=== PATIENT | female | born 1985 | race Caucasian/White ===

== ENCOUNTER 2016-12-02 09:08 | Emergency (ER) | payer MEDICAID ==
[~2016-12-02] VITALS: Ht 157.5 cm; Wt 80.0 kg
[~2016-12-02 09:08] MED LIST: FER325 PO; IBUP800T25 PO; OXYC-281 PO; PRENAT PO
[2016-12-02 09:11] VITALS: Ht 157.5 cm; Wt 80.0 kg
[2016-12-02] MEDS ORDERED: morphine 4 MG/ML VIAL IV STA (10:09)
[2016-12-02] MEDS ORDERED: ONDANSETRON 4 MG INJ IV STA (10:09)
[2016-12-02] MEDS ORDERED: SOD CHLORIDE 0.9% 1,000 ML IV STA (10:09)
[2016-12-02 10:34] LABS: ADD UMIC NO; UR ASCORBIC ACID NEGATIVE (NEGATIVE); UR BILIRUBIN (Dip) NEGATIVE (NEGATIVE); UR BLOOD (Dip) NEGATIVE (NEGATIVE); UR CLARITY CLEAR (CLEAR); UR COLOR STRAW (YELLOW); UR GLUCOSE (Dip) NEGATIVE (NEGATIVE); UR KETONES (Dip) NEGATIVE (NEGATIVE); UR LEUKOCYTE ESTERASE (Dip) NEGATIVE Leu/ul (NEGATIVE); UR NITRITE (Dip) NEGATIVE (NEGATIVE); UR SPECIFIC GRAVITY (Dip) 1.013 (1.003-1.030); UR TOTAL PROTEIN (Dip) NEGATIVE (NEGATIVE); UR UROBILINOGEN (Dip) NEGATIVE (NEGATIVE)
[2016-12-02 10:44] LABS: BASOPHIL # 0.1 10^3/ul (0.0-0.1); BASOPHILS % 0.9 % (0.0-2.0); EOSINOPHILS # 0.1 10^3/ul (0.0-0.5); EOSINOPHILS % 1.4 % (0.0-7.0); HEMATOCRIT 39.4 % (37.0-47.0); HEMOGLOBIN 12.7 g/dl (12.0-16.0); LYMPHOCYTES # 3.1 10^3/ul (0.8-2.9); LYMPHOCYTES % 53.2 % (15.0-51.0); MEAN CORPUSCULAR HEMOGLOBIN 27.3 pg (29.0-33.0); MEAN CORPUSCULAR HGB CONC 32.2 g/dl (32.0-37.0); MEAN CORPUSCULAR VOLUME 84.5 fl (82.0-101.0); MEAN PLATELET VOLUME 9.6 fl (7.4-10.4); MONOCYTE # 0.5 10^3/ul (0.3-0.9); MONOCYTES % 7.9 % (0.0-11.0); NEUTROPHILS % 36.4 % (39.0-77.0); PLATELET COUNT 397 10^3/UL (140-415); RED BLOOD COUNT 4.66 10^6/ul (4.20-5.40); RED CELL DISTRIBUTION WIDTH 13.4 % (11.5-14.5); WHITE BLOOD COUNT 5.7 10^3/ul (4.8-10.8)
[2016-12-02 11:02] LABS: ALBUMIN 4.3 g/dl (3.3-4.9); ALBUMIN/GLOBULIN RATIO 1.3; BILIRUBIN,INDIRECT 0.4 mg/dl (0-1.1); BILIRUBIN,TOTAL 0.4 mg/dl (0.2-1.3); CALCIUM 8.9 mg/dl (8.4-10.2); CREATININE 0.54 mg/dl (0.44-1.00); TOTAL PROTEIN 7.6 g/dl (6.1-8.1)
--- NOTE | 2016-12-02 12:00 | RADRPT ---
PROCEDURE: US Abdomen (right upper quadrant). CLINICAL INDICATION: Right upper quadrant abdomen pain. TECHNIQUE: Multiple real-time longitudinal and transverse images of the right upper quadrant of th e abdomen were acquired utilizing a curved array transducer. Images were reviewed on a high-resoluti on PACS workstation. COMPARISON: CT scan of the abdomen and pelvis dated 11/15/2015 which demonstrated mild right hydro nephrosis. FINDINGS: The liver is normal in size and normal in echogenicity. There is no focal hepatic lesion. Color Doppler and pulsed Doppler sonography demonstrate normal a ntegrade flow in the portal vein. The gallbladder is normal with no stones or wall thickening. There is no pericholecystic fluid donaldo ection. The bile ducts are normal with the common bile duct measuring 3.9 mm in diameter. The visualized portions of the pancreas are unremarkable with obscuration of the tail of the pancrea s. No free fluid is present. The right kidney measures 10.9 cm. There is normal echogenicity of the right kidney. There is mil d right hydronephrosis as seen on prior CT scan. No obstructing lesion is visualized. There is no right renal mass or calculus demonstrated. IMPRESSION: 1. Mild right hydronephrosis as seen on prior CT scan. No obstructing lesion visualized. 2. Otherwise normal right upper quadrant abdomen ultrasound. RPTAT: QQ .Klaus Meeks MD, Date Time Electronically viewed and signed by .Klaus Meeks MD, on 12/02/2016 11:59 .R/
[2016-12-02] MEDS ORDERED: IOHEXOL 300MG/ML 150 ML BTL ONE (13:15)
[2016-12-02] MEDS ORDERED: SOD CHLORIDE 0.9% 100 ML ONE (13:15)
--- NOTE | 2016-12-02 13:45 | RADRPT ---
PROCEDURE: CT Abdomen and pelvis with contrast. CLINICAL INDICATION: Right sided abdominal pain TECHNIQUE: CT scan of the abdomen and pelvis with contrast was performed on a multidetector high-r esolution CT scan. The patient was scanned following the uncomplicated intravenous administration o f 100 cc Omnipaque 300. Coronal and sagittal reformatted images were obtained from the axial source images. Standard CT of the abdomen pelvis with contrast protocols were performed. The total exam CTDI equals 15.35 mGy and the total exam DLP equals 901.98 mGy-cm. One or more of the following dose reduction techniques were used: - Automated exposure control. - Adjustment of the mA and/or kV according to patient size. Use of iterative reconstruction technique. COMPARISON: CT pelvis 11/16/2015 FINDINGS: The appendix is unremarkable. The stomach, small bowel and large bowel are unremarkable. There is trace free fluid in the cul-de-sac. Negative for other free fluid. No intra-abdominal abs cess, free air or lymphadenopathy. The uterus is retroverted and retroflexed but otherwise unremarkable. No adnexal masses. The kidneys are normal in size without calcified renal calculi, hydronephrosis or intra renal masses bilaterally. The ureters and urinary bladder are unremarkable. The liver spleen pancreas adrenal glands and gallbladder are unremarkable. No evidence of biliary d uctal dilation. The lung bases are unremarkable. The aorta is unremarkable the osseous structures are unremarkable. Previous lower abdominal wall abscess no longer seen. Minimal scarring involving the lower anterior midline abdominal wall. The abdominal pelvic unger are otherwise unremarkable. IMPRESSION: 1. Unremarkable appendix. No gastrointestinal disease demonstrated. 2. Trace free fluid in the cul-de-sac. No other abdominal free fluid, free air, abscesses or lymph adenopathy. 3. No evidence of calcified urinary calculi or obstructive uropathy. 4. Midline lower abdominal wall scarring without other abnormality demonstrated. RPTAT:AAJJ Physician Tacho Date Time Electronically viewed and signed by Physician Tacho on 12/02/2016 13:44 /
--- NOTE | 2016-12-02 14:03 | ERA ---
ER Documentation Chief Complaint Date/Time DATE: 12/02/16 TIME: 13:53 Chief Complaint ap 8-10 days HPI 31-year-old female with a chief complaints of abdominal pain and distention worsening over the past week. Patient states she is able to tolerate p.o. Denies nausea, vomiting, diarrhea, constipation, fever, chills, similar symptoms in the past. Denies drug use, IVDU, or alleviating factors. Patient has no other complaints and describes no other associated manifestations. Nursing notes have been reviewed and are consistent with history given. ROS All systems reviewed and are negative except as per history of present illness. Medications Home Meds Active Scripts Ibuprofen* (Ibuprofen*) 800 Mg Tablet, 800 MG PO Q8, #20 TAB 0 Refills Prov:RENEE PEDRAZA MD 11/11/15 Reported Medications Ferrous Sulfate* (Ferrous Sulfate*) 325 Mg Tabec, 325 MG PO DAILY, TAB 11/15/15 Oxycodone Hcl-Acetaminophen* (Percocet*) 5-325 Mg Tablet, 2 TAB PO Q4H Y for PAIN LEVEL 6-10, TAB 11/15/15 Multivit/Min/Fol Ac/Iron/Pren* ( S*) 1 Tab Tab, 1 TAB PO DAILY, TAB 09/04/15 Allergies Allergies: Coded Allergies: No Known Drug Allergies (Verified Allergy, Unknown, 11/15/15) PMhx/Soc History of Surgery: Yes (C SECTION) Anesthesia Reaction: No Hx Neurological Disorder: No Hx Respiratory Disorders: No Hx Cardiac Disorders: No Hx Psychiatric Problems: No Hx Miscellaneous Medical Probl: No Hx Alcohol Use: No Hx Substance Use: No Hx Tobacco Use: No Physical Exam Vitals Vital Signs Date Time Temp Pulse Resp B/P Pulse Ox O2 Delivery O2 Flow Rate FiO2 12/02/16 09:11 98.1 76 18 135/86 99 Physical Exam Const: 31-year-old female lying in the rney on initial presentation. No acute distress. Blast Furnace Checker was Innofidei Head: Atraumatic Eyes: Normal Conjunctiva ENT: Normal External Ears, Nose and Mouth. Neck: Full range of motion..~ No meningismus. Resp: Clear to auscultation bilaterally Cardio: Regular rate and rhythm, no murmurs Abd: Diffuse tenderness. Distended. No guarding. Positive psoas sign. Positive obturator sign. Negative Rovsing sign. Soft. Normal bowel sounds. Skin: No petechiae or rashes. No jaundice. Back: No midline or flank tenderness Ext: No cyanosis, or edema Neur: Awake and alert Psych: Normal Mood and Affect Result Diagram: 12/02/16 1023 12/02/16 1023 Results 24 hrs Laboratory Tests Test 12/02/16 10:00 12/02/16 10:23 Urine Color STRAW Urine Clarity CLEAR Urine pH 7.0 Urine Specific [place] 1.013 Urine Ketones NEGATIVEmg/dL Urine Nitrite NEGATIVEmg/dL Urine Bilirubin NEGATIVEmg/dL Urine Urobilinogen NEGATIVEmg/dL Urine Leukocyte Esterase NEGATIVELeu/ul Urine Hemoglobin NEGATIVEmg/dL Urine Glucose NEGATIVEmg/dL Urine Total Protein NEGATIVEmg/dl White Blood Count 5.710^3/ul Red Blood Count 4.6610^6/ul Hemoglobin 12.7g/dl Hematocrit 39.4% Mean Corpuscular Volume 84.5fl Mean Corpuscular Hemoglobin 27.3pg Mean Corpuscular Hemoglobin Concent 32.2g/dl Red Cell Distribution Width 13.4% Platelet Count 64019^3/UL Mean Platelet Volume 9.6fl Neutrophils % 36.4% Lymphocytes % 53.2% Monocytes % 7.9% Eosinophils % 1.4% Basophils % 0.9% Nucleated Red Blood Cells % 0.0/100WBC Neutrophils # (Manual) 210^3/ul Lymphocytes # 3.110^3/ul Monocytes # 0.510^3/ul Eosinophils # 0.110^3/ul Basophils # 0.110^3/ul Nucleated Red Blood Cells # 0.010^3/ul Sodium Level 143mmol/L Potassium Level 4.0mmol/L Chloride Level 100mmol/L Carbon Dioxide Level 27mmol/L Anion Gap 20 Blood Urea Nitrogen 14mg/dl Creatinine 0.54mg/dl Glucose Level 91mg/dl Calcium Level 8.9mg/dl Total Bilirubin 0.4mg/dl Direct Bilirubin 0.00mg/dl Indirect Bilirubin 0.4mg/dl Aspartate Amino Transf (AST/SGOT) 22IU/L Alanine Aminotransferase (ALT/SGPT) 34IU/L Alkaline Phosphatase 84IU/L Total Protein 7.6g/dl Albumin 4.3g/dl Globulin 3.30g/dl Albumin/Globulin Ratio 1.30 Lipase 59U/L Current Medications Medications (Trade) Dose Ordered Sig/Aravind Route PRN Reason Start Time Stop Time Status Last Admin Dose Admin Sodium Chloride (NS) 1,000 ml @ 1,000 mls/hr Q1H STAT IV 12/02/16 10:09 12/02/16 11:08 DC 12/02/16 10:25 Morphine Sulfate (morphine) 4 mg ONCE STAT IV 12/02/16 10:09 12/02/16 10:12 DC 12/02/16 10:25 Ondansetron HCl (Zofran Inj) 4 mg ONCE STAT IV 12/02/16 10:09 12/02/16 10:12 DC 12/02/16 10:25 IV Flush 10 ml 10 ml STK-MED ONCE .ROUTE 12/02/16 13:15 12/02/16 13:16 DC Sodium Chloride (NS) 100 ml @ ud STK-MED ONCE .ROUTE 12/02/16 13:15 12/02/16 13:16 DC Iohexol (Omnipaque 300mg/ ml) 150 ml STK-MED ONCE .ROUTE 12/02/16 13:15 12/02/16 13:16 DC Procedures/MDM Patient presenting with abdominal pain and distention worsening over the past week as described in history and physical examination. Physical examination was remarkable for tenderness diffusely. Labs and CT were ordered as well as ultrasound. Labs were largely unremarkable. Ultrasound was read by the radiologist given the impression of unremarkable. CT was read by the radiologist and was largely unremarkable for acute pathology. At this time of little suspicion for appendicitis, AAA, PID, pyelonephritis, cholangitis, diverticulitis, or other causes of acute abdomen. Most likely diagnosis is generalized abdominal pain due to unknown etiology. I spoke with my attending who agrees with the assessment and plan. I have spoke with the patient regarding their condition and future management. They have verbally responded that they understand their status and treatment plan. The patients vitals are stable, and their current condition is appropriate for discharge. The patient will be given discharge instructions with return precautions. Departure Diagnosis: Primary Impression: Abdominal pain Qualified Code: R10.84 - Generalized abdominal pain Condition: Stable Additional Instructions: Return to emergency department and 12 hours for reevaluation. Follow up with your PCP within the next 1-3 days for a more thorough evaluation and a possible referral to a specialist. Return the the emergency department immediately if symptoms worsen or change. If you have any questions regarding medications, ask your pharmacist or us before you leave. If any adverse reactions occur while taking your medications, discontinue the treatment and return to the emergency department immediately. Take your medications as directed, and complete the entire course of treatment. PERLA UHFF PA-C Dec 02, 2016 14:03
[2016-12-02] MEDS ORDERED: ACET-514 PO (14:06)
[2016-12-02] MEDS ORDERED: ONDA4TAB14 PO (14:06)
[2016-12-02 14:19] VITALS: BP 127/69; PULSE 61; RESP 18
== END 2016-12-02 14:22 | disposition home or self-care (01) ==
LOC: FTE 09:08
DX: R10.84 Generalized abdominal pain (principal)
CPT/HCPCS: 36415; 74177; 76705; 80053; 81003; 83690; 85025; 96374; 96375; J2270; J2405; J7030; Q9967; Z7502; Z7610

== ENCOUNTER 2017-12-01 21:46 | Emergency (ER) | END 2017-12-02 01:58 | disposition home or self-care (01) ==

== ENCOUNTER → 2018-07-27 | Outpatient (CLI) | payer MEDICAID ==
[~2018-07-27] MED LIST changes: +ACET-514 PO; +HC30CR25 TOP; +IBUP-1544 PO; -IBUP800T25 PO; +LORA10CA PO; +ONDA4TAB14 PO
== END | disposition home or self-care (01) ==
LOC: U/S 10:50
PROVIDERS: ATTEND Obstetrics & Gynecology
DX: Z32.01 Encounter for pregnancy test, result positive (principal)
CPT/HCPCS: 76801; 76817

== ENCOUNTER 2018-08-16 08:26 | Emergency (ER) | payer MEDICAID ==
[~2018-08-16] VITALS: Ht 165.1 cm; Wt 70.0 kg
[2018-08-16 08:27] VITALS: BP 144/56; PULSE 61; RESP 18; Ht 165.1 cm; Wt 70.0 kg
[2018-08-16] MEDS ORDERED: ACET325T33 PO (11:33)
--- NOTE | 2018-08-16 12:22 | ERD ---
ER Documentation Chief Complaint Chief Complaint pelvic pain 2 months also has foul smelling urine per pt HPI 33-year-old female presenting with pelvic pain x1 day. Patient had noted some mild foul-smelling urine. She is 6 weeks . LNMP June 14. G3, . Denies fevers. Has not taken medications for symptoms. Denies medical problems. NKDA. Surgical history . Social history denies ROS All systems reviewed and are negative except as per history of present illness. Medications Home Meds Active Scripts Acetaminophen* (Tylenol*) 325 Mg Tablet, 2 TAB PO Q6 PRN for PAIN AND OR ELEVATED TEMP, #20 TAB Prov:RACHELLE LEDESMA PA-C 08/16/18 Hydrocortisone* Topical (Hydrocortisone* Topical) 2.5%-28.3 Gm Cream..g., 1 APPLIC TOP BID, #1 TUB Prov:LEONCIO SALAZAR PA-C 12/02/17 Loratadine* (Claritin*) 10 Mg Capsule, 10 MG PO DAILY, #30 CAP Prov:LEONCIO SALAZAR PA-C 12/02/17 Acetaminophen (Acetaminophen) 325 Mg Tablet, 325 MG PO Q4 for 14 Days, TAB Prov:PERLA HUFF PA-C 12/02/16 Ondansetron (Ondansetron Odt) 4 Mg Tab.rapdis, 4 MG PO Q6H PRN for NAUSEA AND/OR VOMITING, #10 TAB Prov:PERLA HUFF PA-C 12/02/16 Ibuprofen* (Ibuprofen*) 800 Mg Tablet, 800 MG PO Q8, #20 TAB 0 Refills Prov:RENEE PEDRAZA MD 11/11/15 Reported Medications Ferrous Sulfate* (Ferrous Sulfate*) 325 Mg Tabec, 325 MG PO DAILY, TAB 11/15/15 Oxycodone Hcl-Acetaminophen* (Percocet*) 5-325 Mg Tablet, 2 TAB PO Q4H PRN for PAIN LEVEL 6-10, TAB 11/15/15 Multivit/Min/Fol Ac/Iron/Pren* ( S*) 1 Tab Tab, 1 TAB PO DAILY, TAB 09/04/15 Allergies Allergies: Coded Allergies: No Known Drug Allergies (Verified Allergy, Unknown, 12/02/17) PMhx/Soc History of Surgery: Yes (C SECTION) Anesthesia Reaction: No Hx Neurological Disorder: No Hx Respiratory Disorders: No Hx Cardiac Disorders: No Hx Psychiatric Problems: No Hx Miscellaneous Medical Probl: No Hx Alcohol Use: No Hx Substance Use: No Hx Tobacco Use: No FmHx Family History: No diabetes, No coronary disease, No other Physical Exam Vitals Vital Signs Date Temp Pulse Resp B/P (MAP) Pulse Ox O2 O2 Flow FiO2 Time Delivery Rate 08/16/18 97.7 61 18 144/56 98 08:27 (85) Physical Exam GENERAL: The patient is well-appearing, well-nourished, in no acute distress CHEST: Clear to auscultation bilaterally. There are no rales, wheezes or rhon chi. HEART: Regular rate and rhythm. No murmurs, clicks, rubs or gallops. No S3 or S4. ABDOMEN:Soft, nontender and nondistended. Good bowel sounds. No rebound or guarding. No gross peritonitis. No gross organomegaly or masses. BACK: No midline or flank tenderness. Result Diagram: 08/16/18 0953 Results 24 hrs Laboratory Tests Test 08/16/18 09:07 08/16/18 09:10 08/16/18 09:53 Urine Color YELLOW Urine Clarity SLIGHTLY CLOUDY Urine pH 8.0 Urine Specific [place] 1.021 Urine Ketones NEGATIVE mg/dL Urine Nitrite NEGATIVE mg/dL Urine Bilirubin NEGATIVE mg/dL Urine Urobilinogen NEGATIVE mg/dL Urine Leukocyte Esterase NEGATIVE [place]/ul Urine Microscopic RBC 2 /HPF Urine Microscopic WBC 3 /HPF Urine Squamous Epithelial Cells FEW /HPF Urine Mucus FEW /HPF Urine Hemoglobin NEGATIVE mg/dL Urine Glucose NEGATIVE mg/dL Urine Total Protein NEGATIVE mg/dl Bedside Urine pH (LAB) 7.5 Bedside Urine Protein (LAB) 1+ Bedside Urine Glucose (UA) Negative Bedside Urine Ketones (LAB) Negative Bedside Urine Blood Negative Bedside Urine Nitrite (LAB) Negative Bedside Urine Leukocyte Esterase Negative (L POC Beta HCG, Qualitative POSITIVE White Blood Count 8.2 10^3/ul Red Blood Count 4.52 10^6/ul Hemoglobin 12.4 g/dl Hematocrit 38.1 % Mean Corpuscular Volume 84.3 fl Mean Corpuscular Hemoglobin 27.4 pg Mean Corpuscular 32.5 g/dl Hemoglobin Concent Red Cell Distribution Width 13.6 % Platelet Count 410 10^3/UL Mean Platelet Volume 9.3 fl Immature Granulocytes % 0.500 % Neutrophils % 56.4 % Lymphocytes % 33.1 % Monocytes % 8.0 % Eosinophils % 1.3 % Basophils % 0.7 % Nucleated Red Blood Cells % 0.0 /100WBC Immature Granulocytes # 0.040 10^3/ul Neutrophils # 4.6 10^3/ul Lymphocytes # 2.7 10^3/ul Monocytes # 0.7 10^3/ul Eosinophils # 0.1 10^3/ul Basophils # 0.1 10^3/ul Nucleated Red Blood Cells # 0.0 10^3/ul Beta HCG, Quantitative 35151.0 mIU/ml Procedures/MDM DIAGNOSTIC IMAGING REPORT Patient: CLARE CHAN : 1985 Age: 33 Sex: F MR #: [id number] DOS: 08/16/18 0919 Ordering MD: MANUELA LEDESMA PA-C Location: [facility] Room/Bed: PROCEDURE: US OB. CLINICAL INDICATION: Pelvic pain TECHNIQUE: Transabdominal and transvaginal views of the pelvis were obtained. COMPARISON: No prior studies are available for comparison. FINDINGS: There is a single intrauterine gestation with a CRL measuring 1.6 cm, corresponding to a gestational age of 8 weeks and 0 days. The heart rate is noted at 161 bpm. There is a hypoechoic fluid collection adjacent to the gestational sac, measuring approximately 1.1 cm, consistent with subchorionic hemorrhage. The right ovary measures 2.3 x 1.3 x 1.7 cm. The left ovary measures 3.6 x 2.3 x 2.9 cm. There is a 2.1 cm corpus luteum cyst in the left ovary. There is no free fluid. RPTAT: AA IMPRESSION: Single live intrauterine with an estimated gestational age of 8 weeks and 0 days, based on ultrasound measurements. Focal area of subchorionic hemorrhage. Close follow-up is recommended. MDM: 33-year-old female presenting with mild pelvic pain. I have low suspicion for ectopic as patient's is noted to be within the uterus. I have low suspicion for UTI or pyelonephritis. I have low suspicion for acute abdominal emergency. Exam is non-concerning. Patient is discharged with strict ER precautions and told to follow-up with primary care within 1 to 2 days for close evaluation. Patient is told symptoms change or worsen to return immediately to the ER. All questions answered at discharge Departure Diagnosis: Primary Impression: Pelvic pain affecting Condition: Stable Patient Instructions: : Common Questions Referrals: SCRAPER LOADER OPERATOR [place] [id number] [facility] [address] [place] [address]ABUSLEME [address] [place] [address] [address], [place] [address] [place] [address] [address] [facility] [address] [facility] [facility] [address] [address], [facility] [address] [place] [address] [facility] [address] [place] [address] [phone] [facility] [id number] - [address] [facility]. [address], [facility] [address] [address] DONIS QASIM [address] [facility]. [address], [facility] [address] [address] [facility] [address] [place], [place] [id number] Additional Instructions: FOLLOW UP WITH YOUR PRIMARY CARE PHYSICIAN TOMORROW.Return to this facility if you are not improving as expected. RACHELLE LEDESMA PA-C August 16, 2018 12:22
== END 2018-08-16 11:55 | disposition home or self-care (01) ==
LOC: FTE 08:26
DX: O26.891 Other specified pregnancy related conditions, first trimester (principal); R10.2 Pelvic and perineal pain; Z3A.01 Less than 8 weeks gestation of pregnancy
CPT/HCPCS: 76801; 76817; 81001; 81025; 84702; 85025; 86900; 86901; 87086; Z7502; 81003

== ENCOUNTER 2018-10-04 20:38 | Emergency (ER) | payer MEDICAID ==
[~2018-10-04] VITALS: Wt 81.0 kg
[~2018-10-04 20:38] MED LIST changes: +ACET325T33 PO
[2018-10-05 01:21] VITALS: BP 125/59; PULSE 90; RESP 18
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
== END 2018-10-05 01:23 | disposition home or self-care (01) ==
LOC: FTE 20:38
DX: O26.892 Other specified pregnancy related conditions, second trimester (principal); R10.9 Unspecified abdominal pain; R10.2 Pelvic and perineal pain; V89.2XXA Person injured in unspecified motor-vehicle accident, traffic, initial encounter; Z3A.15 15 weeks gestation of pregnancy
CPT/HCPCS: 36415; 76705; 76805; 80053; 81001; 81025; 83690; 84702; 85025; Z7502